=== PATIENT | male | born 2000 | race Caucasian/White ===

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

== ENCOUNTER 2024-04-11 13:52 | Emergency (ER) | payer BC ==
[~2024-04-11] VITALS: Ht 170.2 cm; Wt 92.0 kg
[2024-04-11 13:54] VITALS: O2SAT 100
[2024-04-11 13:57] VITALS: BP 138/93; PULSE 104; RESP 16; TEMP 98.4; O2SAT 100
[2024-04-11 18:28] LABS: BASOPHILS % 0.5 % (0.0-2.0); EOSINOPHILS % 2.3 % (0.0-5.0); HEMATOCRIT. 46.5 % (42.0-52.0); HEMOGLOBIN. 15.9 g/dL (14.0-18.0); LYMPHOCYTES % 31.6 % (20.0-50.0); MEAN CORPUSCULAR HGB CONC 34.2 g/dL (31.0-37.0); MEAN CORPUSCULAR VOLUME 93.6 fL (80.0-94.0); MEAN PLATELET VOLUME 7.5 fl (7.4-10.4); MONOCYTES % 6.9 % (2.0-8.0); NEUTROPHILS % 58.7 % (40.0-76.0); PLATELET 351 x1000/uL (130-400); RED BLOOD CELL COUNT 4.97 mill/uL (4.7-6.1); RED CELL DISTRIBUTION WIDTH 13.5 % (11.6-14.6); WHITE BLOOD COUNT 9.7 x1000/uL (4.5-11.0)
[2024-04-11 18:34] LABS: CHLORIDE 105 mEq/L (98-107); POTASSIUM 4.1 mEq/L (3.5-5.1); SODIUM 140 mEq/L (136-145)
[2024-04-11 18:35] LABS: CARBON DIOXIDE 27 mEq/L (21-32)
[2024-04-11 18:36] LABS: CALCIUM 9.8 mg/dL (8.7-10.4)
[2024-04-11 18:40] LABS: GLUCOSE 98 mg/dL (70-105)
[2024-04-11 18:41] LABS: UREA NITROGEN BLOOD 13 mg/dL (9-23)
== END 2024-04-11 20:30 | disposition home or self-care (01) ==
LOC: ER 13:52
DX: K40.90 Unilateral inguinal hernia, without obstruction or gangrene, not specified as recurrent (principal)
CPT/HCPCS: 36415; 76857; 80048; 85025; 99284

== ENCOUNTER 2025-01-16 00:24 | Emergency (ER) | payer MEDICAID ==
[~2025-01-16] VITALS: Ht 170.2 cm; Wt 102.0 kg
[2025-01-16 01:00] VITALS: BP 136/84; PULSE 130; RESP 30; TEMP 36.9; O2SAT 97
[2025-01-16] MEDS: KETOROLAC 30MG/ML VIAL IM ONE (01:53)
[2025-01-16] MEDS: ACETAMINOPHEN 325MG TABLET PO ONE (01:53)
[2025-01-16] MEDS ORDERED: IBUP-1455 MT (02:04)
== END 2025-01-16 03:25 | disposition home or self-care (01) ==
LOC: ER 00:24
DX: S00.83XA Contusion of other part of head, initial encounter (principal); S60.221A Contusion of right hand, initial encounter; S52.602A Unspecified fracture of lower end of left ulna, initial encounter for closed fracture; M25.561 Pain in right knee; Y08.89XA Assault by other specified means, initial encounter; Y93.89 Activity, other specified; Y92.89 Other specified places as the place of occurrence of the external cause; Y99.8 Other external cause status
CPT/HCPCS: 29125; 70486; 73130; 73560; 99284; J1885